=== PATIENT | female | born 1985 | race Caucasian/White ===

== ENCOUNTER 2016-08-06 21:05 | Emergency (ER) | payer SELFPAY ==
[2016-08-06] MEDS ORDERED: LORazepam 2 MG/ML INJ ONE (21:18)
[2016-08-06] MEDS ORDERED: LORazepam 2 MG/ML INJ IVP ONE (21:25)
[2016-08-06] MEDS ORDERED: NS 1,000 ML IV ONE (22:05)
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
[2016-08-06 22:22] LABS: % IMMATURE GRANULYOCYTES 0.2 % (0.0-1.1); ABSOLUTE IMMATURE GRANULOCYTES 0.02 10^3/uL (0.00-0.10); ADD DIFF? NO; ADD MORPH? NO; ADD SCAN? NO; ATYPICAL LYMPHOCYTE FLAG 10 (0-99); FRAGMENT RBC FLAG 0 (0-99); HEMOGLOBIN 13.7 g/dL (12.6-16.3); LEFT SHIFT FLG 0 (0-99); LIPEMIA HEMOLYSIS FLAG 80 (0-99); MEAN CELL HEMOGLOBIN 29.7 pg (27.9-34.1); MEAN CELL HEMOGLOBIN CONCENTR. 33.4 g/dL (32.4-36.7); MEAN CELL VOLUME 88.9 fL (81.5-99.8); MEAN PLATELET VOLUME 12.5 fL (8.7-11.7); PLATELET CLUMPS FLAG 0 (0-99); PLATELET COUNT 281 10^3/uL (150-400); RED BLOOD CELL COUNT 4.61 10^6/uL (4.18-5.33); RED CELL DISTRIBUTION WIDTH 13.3 % (11.5-15.2)
[2016-08-06 22:35] LABS: ANION GAP 14 mEq/L (8-16); CALCIUM 9.9 mg/dL (8.5-10.4); CARBON DIOXIDE 21 mEq/l (22-31); CHLORIDE 104 mEq/L (97-110); CREATININE 0.7 mg/dL (0.6-1.0); GLOMERULAR FILTRATION RATE > 60; GLUCOSE 109 mg/dL (70-100); SODIUM 139 mEq/L (134-144)
[2016-08-06 22:37] LABS: COLOR YELLOW; LEUKOCYTE ESTERASE,URINE NEGATIVE (NEGATIVE); NITRITE,URINE NEGATIVE (NEGATIVE)
[2016-08-06] MEDS ORDERED: KETOROLAC 30 MG/1 ML SDV IVP ONE (22:39)
[2016-08-06 22:46] LABS: MUCUS 1+ /lpf (NONE-1+)
[2016-08-06] MEDS ORDERED: LORAZEPAM 1 MG PREPACK#4 BTL TAKEHOME ONE (23:08)
[2016-08-06 23:20] VITALS: BP 126/84; PULSE 82; RESP 18; TEMP 97.2; O2SAT 95
== END 2016-08-06 23:20 | disposition home or self-care (01) ==
DX: F41.9 Anxiety disorder, unspecified (principal)
CPT/HCPCS: 96374; J1885; J2060

== ENCOUNTER → 2016-12-06 | Emergency (ER) | payer MEDICAID ==
[~2016-12-06] MED LIST: LIDOCAINE 2% VISCOUS 15 ML UDCUP PO ONE; OXYCODONE/APAP 5/325 TAB PO ONE; OXYCODONE/APAP 5/325MG PREPACK#4 BTL TAKEHOME ONE
[2016-12-06 20:20] VITALS: BP 145/101; PULSE 97; RESP 16; TEMP 99; O2SAT 95
--- NOTE | 2016-12-06 20:34 | EDPHY ---
HPI/HX/ROS/PE/MDM Narrative: CHIEF COMPLAINT: Toothache HPI: The patient is a 31-year-old female who underwent extraction of her right lower premolar 5 days ago secondary to a dental abscess. She was prescribed Vicodin. She has taken a total of 2 tabs of Vicodin today. She describes severe pain that has gotten gradually worse over the course of today. She called her dentist office but they were closed. She has an appointment on . She denies fever or discharge from wound. REVIEW OF SYSTEMS: Aside from elements discussed in the HPI, a comprehensive 10-point review of systems was reviewed and is negative. PMH: Includes anxiety. SOCIAL HISTORY: Denies alcohol or drug abuse. PHYSICAL EXAM: General:Patient is alert, in no acute distress. She is tearful and obviously in pain. ENT: No tongue or soft tissue swelling. Tooth extraction site of right lower premolar is present. There is no associated gingival swelling or discharge from wound. No bleeding. Neck: Normal inspection. Full range of motion. Neuro: Oriented x3. Normal motor function. Normal sensory function. ED Course: This patient presents with gum pain at the site of a recent dental procedure. I did look the patient up in the [facility] web site, and her only narcotic prescription is for the Vicodin from her dentist as she described. She is clearly and at significant amount of pain and I think she is very low risk for drug seeking behavior. Did perform an inferior alveolar nerve block. The patient will be given a prepack for Percocet and instructions to follow up with her dentist tomorrow. We discussed antibiotics, but as I see no fluctuance and the patient hopefully has access to a dentist tomorrow, we will defer this medication. Inferior alveolar nerve block. Verbal consent was obtained from the patient. Using a 27 gauge needle I performed an injection using lidocaine and bupivacaine in the usual fashion. No complications. General Time Seen by Provider: 12/06/16 20:11 Initial Vital Signs: Initial Vital Signs Temperature (C) 37.2 C 12/06/16 20:10 Heart Rate 97 12/06/16 20:10 Respiratory Rate 16 12/06/16 20:10 Blood Pressure 145/101 H 12/06/16 20:10 O2 Sat (%) 95 12/06/16 20:10 O2 Delivery Mode Room Air Allergies/Adverse Reactions: No Known Allergies Allergy (Verified 12/06/16 20:15) Home Medications: Medication Instructions Recorded Hydrocodon-Acetaminophen 5-325 12/06/16 NK [No Known Home Meds] 12/06/16 Departure - Departure Disposition: Home, Routine, Self-Care Clinical Impression: Jaw pain Condition: Good Instructions: Toothache (ED) Additional Instructions: Clear dentist tomorrow for urgent follow-up. Do not take Percocet and Vicodin at the same time. Return to the emergency department for fever, severe pain or other concerns. Referrals: NONE *PRIMARY CARE P,. [Primary Care Provider] - As per Instructions
== END | disposition home or self-care (01) ==
LOC: CED 20:04
PROC: 3E0X3BZ Introduction of Anesthetic Agent into Cranial Nerves, Percutaneous Approach (ICD-10-PCS; principal; 2016-12-06)
DX: R68.84 Jaw pain (principal)

== ENCOUNTER 2017-03-05 19:09 | Emergency (ER) | payer MEDICAID ==
[2017-03-05] MEDS ORDERED: NS 1,000 ML IV ONE ×2 (19:35→20:41)
[2017-03-05] MEDS ORDERED: ACETAMINOPHEN 160 MG/5 ML UDCUP PO ONE (19:36)
--- NOTE | 2017-03-05 19:42 | EDPHY ---
H & P Stated Complaint: Trouble breathing, fast heart rate. Took two tablets of Kratom today. Time Seen by Provider: 03/05/17 19:20 HPI/ROS: CHIEF COMPLAINT: Shortness of breath and racing heart History by patient HISTORY OF PRESENT ILLNESS: 31-year-old woman presents complaining of his like she can't breathe and her heart racing. Patient states that for the past week or so she has had some URI symptoms that started with sneezing, coughing it runny nose and sore throat which she attributed to allergies. This seemed to improve somewhat but then she had persistent coughing and this morning when she was in the shower she states she coughed up several blood clots. She has had some chills but no fever. Then tonight she was in the car and she felt like she could not get enough air that her heart was racing and that maybe she is having a panic attack. Patient has a history of panic attacks in the past but states that she has been much better recently. Patient states that she took Kratom this morning and she does not attribute her symptoms to that. Her boyfriend says that he took it too but his affects have all worn off. Patient denies any chest pain or pleuritic pain. She denies any nausea or vomiting. She has some ongoing back pain. She has a history of asthma as a child but none recently. She recently quit smoking. She also has a history of sepsis related to pyelonephritis in the past. She is not taking any hormones. There is no family history of blood clotting. REVIEW OF SYSTEMS: As in HPI, and all other systems reviewed and are negative Source: Patient - Personal History Current Tetanus/Diphtheria Vaccine: Yes Current Tetanus Diphtheria and Acellular Pertussis (TDAP): Yes Tetanus Vaccine Date: 2011 - Medical/Surgical History Hx Asthma: Yes Hx Chronic Respiratory Disease: No Hx Diabetes: No Hx Cardiac Disease: No Hx Renal Disease: No Hx Cirrhosis: No Hx Alcoholism: No Hx HIV/AIDS: No Hx Splenectomy or Spleen Trauma: No Other PMH: anxiety, panic attacks, asthma as a child, Kratom user. surg-none - Social History Smoking Status: Never smoked - Physical Exam Exam: General Appearance: Alert, anxious, tearful. Head: normocephalic, atraumatic Eyes: Pupils equal and round, reactive to light, no pallor or injection. Mouth: Mucous membranes moist. Respiratory: Slightly taking, lungs are clear to auscultation. No wheezes, rales or rhonchi. No chest wall tenderness Cardiovascular: Regular , tachycardic. S1, S2, no murmurs, gallops or rubs appreciated Gastrointestinal: Abdomen is soft and nontender, no masses, bowel sounds normal. Back: No CVA tenderness, no bony tenderness Neurological: Awake, alert and oriented x 3, no pronator drift, normal gait, no pronator drift Skin: Warm and dry, no rashes. Musculoskeletal: No deformities or tenderness. Extremities: full range of motion, no edema, no tenderness, DP2+ bilat Psychiatric: Patient has normal affect, there is no agitation. Constitutional: Initial Vital Signs Temperature (C) 37.9 C 03/05/17 19:30 Heart Rate 136 H 03/05/17 19:30 Respiratory Rate 18 03/05/17 19:30 Blood Pressure 138/91 H 03/05/17 19:30 O2 Sat (%) 94 03/05/17 19:30 O2 Delivery Mode Room Air Allergies/Adverse Reactions: No Known Allergies Allergy (Verified 03/05/17 19:14) Medical Decision Making - Diagnostics EKG Interpretation: Sinus tachycardia and rate of 125 with normal axis, normal intervals and nonspecific ST segment abnormality. No evidence of acute ischemia Imaging Results: Imaging Impressions Chest X-Ray 03/05/17 19:35 Impression: No acute findings in the chest. ED Course/Re-evaluation: 31-year-old woman presents complaining of chest pain, fever, racing heart and shortness of breath. ECG showed sinus tachycardia with nonspecific ST changes was otherwise unremarkable. There is no evidence of cardiac arrhythmia causing the patient's symptoms. Labs were notable for an elevated white blood cell count and normal hemoglobin and platelets. Electrolytes were within normal limits as was a lactate. Blood cultures x2 were obtained. A rapid strep was negative. Chest x-ray showed nothing acute. Patient was given a L of normal saline as well as Tylenol. On re-evaluation her heart rate was improved but she was complaining of pain in her back and her chest. She was given IV ketorolac the 2nd L fluids with further improvement in her heart rate. Urinalysis showed no evidence of urinary tract infection. It was not a clean catch. Flu test was negative for flu a and B. at this point I suspect the patient has a flu- like a viral infection. There is no evidence of significant systemic toxicity. Her heart rate returned to normal after 2nd L of IV fluids. On re-evaluation she was also feeling better. I discussed home measures and conservative care with the patient as well as return precautions. She was discharged home stable condition. - Data Points Laboratory Results: Laboratory Results 03/05/17 19:45 03/05/17 19:45 03/05/17 03/05/17 03/05/17 21:00 21:00 19:52 WBC RBC Hgb Hct MCV MCH MCHC RDW Plt Count MPV Neut % (Auto) Lymph % (Auto) [place] % (Auto) Eos % (Auto) Baso % (Auto) Nucleat RBC Rel Count Absolute Neuts (auto) Absolute Lymphs (auto) Absolute Monos (auto) Absolute Eos (auto) Absolute Basos (auto) Absolute Nucleated RBC Immature Gran % Immature Gran # VBG Lactic Acid Sodium Potassium Chloride Carbon Dioxide Anion Gap BUN Creatinine Estimated GFR Glucose Calcium Urine Color YELLOW Urine Appearance CLEAR Urine pH 6.0 (5.0-7.5) Ur Specific [place] 1.015 (1.002-1.030) Urine Protein NEGATIVE (NEGATIVE) Urine Ketones NEGATIVE (NEGATIVE) Urine Blood 2+ H (NEGATIVE) Urine Nitrate NEGATIVE (NEGATIVE) Urine Bilirubin NEGATIVE (NEGATIVE) Urine Urobilinogen 0.2 EU EU (0.2-1.0) Ur Leukocyte Esterase NEGATIVE (NEGATIVE) Urine RBC 1-3 /hpf /hpf (0-3) Urine WBC 1-3 /hpf /hpf (0-3) Ur Epithelial Cells 2+ /lpf H /lpf (NONE-1+) Urine Bacteria 1+ /hpf H /hpf (NONE SEEN) Hyaline Casts 0-1 /lpf /lpf (0-1) Urine Mucus 2+ /lpf H /lpf (NONE-1+) Urine Glucose NEGATIVE (NEGATIVE) Urine Test NEGATIVE Nasal Influenza A PCR NEGATIVE FOR FLU A (NEGATIVE) Nasal Influenza B PCR NEGATIVE FOR FLU B (NEGATIVE) Urine Opiates Screen NEGATIVE (NEGATIVE) Urine Barbiturates NEGATIVE (NEGATIVE) Ur Phencyclidine Scrn NEGATIVE (NEGATIVE) Ur Amphetamine Screen NEGATIVE (NEGATIVE) U Benzodiazepines Scrn NEGATIVE (NEGATIVE) Urine Cocaine Screen NEGATIVE (NEGATIVE) U Marijuana (THC) Screen NON-NEGATIVE H (NEGATIVE) 03/05/17 03/05/17 03/05/17 19:45 19:45 19:45 WBC 11.36 10^3/uL H 10^3/uL (3.80-9.50) RBC 4.13 10^6/uL L 10^6/uL (4.18-5.33) Hgb 12.8 g/dL g/dL (12.6-16.3) Hct 37.3 % L % (38.0-47.0) MCV 90.3 fL fL (81.5-99.8) MCH 31.0 pg pg (27.9-34.1) MCHC 34.3 g/dL g/dL (32.4-36.7) RDW 12.6 % % (11.5-15.2) Plt Count 217 10^3/uL 10^3/uL (150-400) MPV 11.7 fL fL (8.7-11.7) Neut % (Auto) 59.2 % % (39.3-74.2) Lymph % (Auto) 29.0 % % (15.0-45.0) [place] % (Auto) 7.3 % % (4.5-13.0) Eos % (Auto) 3.4 % % (0.6-7.6) Baso % (Auto) 0.7 % % (0.3-1.7) Nucleat RBC Rel Count 0.0 % % (0.0-0.2) Absolute Neuts (auto) 6.72 10^3/uL H 10^3/uL (1.70-6.50) Absolute Lymphs (auto) 3.29 10^3/uL H 10^3/uL (1.00-3.00) Absolute Monos (auto) 0.83 10^3/uL H 10^3/uL (0.30-0.80) Absolute Eos (auto) 0.39 10^3/uL 10^3/uL (0.03-0.40) Absolute Basos (auto) 0.08 10^3/uL 10^3/uL (0.02-0.10) Absolute Nucleated RBC 0.00 10^3/uL 10^3/uL (0-0.01) Immature Gran % 0.4 % % (0.0-1.1) Immature Gran # 0.05 10^3/uL 10^3/uL (0.00-0.10) VBG Lactic Acid 1.1 mmol/L mmol/L (0.7-2.1) Sodium 137 mEq/L mEq/L (134-144) Potassium 3.5 mEq/L mEq/L (3.5-5.2) Chloride 102 mEq/L mEq/L (97-110) Carbon Dioxide 24 mEq/l mEq/l (22-31) Anion Gap 11 mEq/L mEq/L (8-16) BUN 7 mg/dL mg/dL (7-23) Creatinine 0.7 mg/dL mg/dL (0.6-1.0) Estimated GFR > 60 Glucose 186 mg/dL H mg/dL (70-100) Calcium 8.8 mg/dL mg/dL (8.5-10.4) Urine Color Urine Appearance Urine pH Ur Specific [place] Urine Protein Urine Ketones Urine Blood Urine Nitrate Urine Bilirubin Urine Urobilinogen Ur Leukocyte Esterase Urine RBC Urine WBC Ur Epithelial Cells Urine Bacteria Hyaline Casts Urine Mucus Urine Glucose Urine Test Nasal Influenza A PCR Nasal Influenza B PCR Urine Opiates Screen Urine Barbiturates Ur Phencyclidine Scrn Ur Amphetamine Screen U Benzodiazepines Scrn Urine Cocaine Screen U Marijuana (THC) Screen Medications Given: Discontinued Medications Acetaminophen (Tylenol 160mg/5ml Oral Liquid) 1,000 mg PO EDNOW ONE Stop: 03/05/17 19:37 Last Admin: 03/05/17 19:45 Dose: 1,000 mg Sodium Chloride (Ns) 1,000 mls @ 0 mls/hr IV ONCE ONE; Wide Open PRN Reason: Protocol Stop: 03/05/17 19:36 Last Admin: 03/05/17 19:43 Dose: 1,000 mls Sodium Chloride (Ns) 1,000 mls @ 0 mls/hr IV EDNOW ONE; Wide Open PRN Reason: Protocol Stop: 03/05/17 20:42 Last Admin: 03/05/17 20:45 Dose: 1,000 mls Ketorolac Tromethamine (Toradol) 15 mg IVP EDNOW ONE Stop: 03/05/17 20:42 Last Admin: 03/05/17 20:44 Dose: 15 mg Departure - Departure Disposition: Home, Routine, Self-Care Clinical Impression: Palpitations Fever Qualifiers: Fever type: unspecified Qualified Code(s): R50.9 - Fever, unspecified Condition: Good Instructions: Fever in Adults (ED) Additional Instructions: You were seen by Dr. Silvia Chávez today. Make sure you drink plenty of fluids. Rest. Take ibuprofen and Tylenol as needed for fever and pain. Return for any worsening or new concerns.
[2017-03-05 19:51] LABS: PLATELET COUNT 217 10^3/uL (150-400)
[2017-03-05] MEDS ORDERED: KETOROLAC 15 MG/1 ML SDV IVP ONE (20:41)
[2017-03-05 22:51] VITALS: BP 136/71; PULSE 96; RESP 16; TEMP 98.1; O2SAT 94
--- NOTE | 2017-03-14 12:42 | CPEKG ---
Heart Rate: 125 RR Interval: 480 P-R Interval: 148 QRSD Interval: 86 QT Interval: 320 QTC Interval: 462 P [place]: 42 QRS [place]: 78 T Wave [place]: -1 EKG Severity - OTHERWISE NORMAL ECG - EKG Impression: SINUS TACHYCARDIA EKG Impression: MINIMAL ST DEPRESSION, INFERIOR LEADS Preliminary Awaiting MD Review
== END 2017-03-05 23:00 | disposition home or self-care (01) ==
LOC: CED 19:09
DX: R50.9 Fever, unspecified (principal); R00.2 Palpitations; J45.909 Unspecified asthma, uncomplicated; E86.9 Volume depletion, unspecified
CPT/HCPCS: 71020-PO; 80048-PO; 80307-PO; 81003-PO; 81015-PO; 81025-PO; 83605-PO; 85025-PO; 96374; J1885

== ENCOUNTER 2017-09-13 13:18 | Emergency (ER) | payer MEDICAID, OTHER ==
--- NOTE | 2017-09-13 13:42 | EDPHY ---
H & P Stated Complaint: Panic Attack - Personal History LMP (Females 10-55): Now Tetanus Vaccine Date: 2011 - Medical/Surgical History Hx Asthma: Yes Hx Chronic Respiratory Disease: No Hx Diabetes: No Hx Cardiac Disease: No Hx Renal Disease: No Hx Cirrhosis: No Hx Alcoholism: No Hx HIV/AIDS: No Hx Splenectomy or Spleen Trauma: No Other PMH: anxiety, panic attacks, asthma as a child, Kratom user. 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 This is the 2nd panic attack this week the patient has had. She notes numerous personal stressors in her life which has become progressively worse. No medication changes. PRIMARY CARE PROVIDER: REVIEW OF SYSTEMS: A ten point review of systems was performed and is negative with the exception of the items mentioned in the HPI PAST MEDICAL & SURGICAL HISTORY: Anxiety. Depression. SOCIAL HISTORY: works as a mental health pole truck driver PHYSICAL EXAM (Prior to examination, patient consented to physical exam, hands were washed and my usual and customary physical exam procedures followed) 1) GENERAL: Well-developed, well-nourished, alert and oriented. Hyperventilating, crying 2) HEAD: Normocephalic, atraumatic 3) HEENT: Pupils equal, round, reactive to light bilaterally. Sclera anicteric. 4) NECK: Full range of motion, no meningeal signs. 5) LUNGS: Clear auscultation bilaterally, no wheezes, no rhonchi, no retractions. 6) HEART: Regular rate and rhythm, no murmur, no heave, no gallop. 7) ABDOMEN: No guarding, no rebound, no focal tenderness, 8) MUSCULOSKELETAL: No peripheral edema or discoloration. 9) BACK: No obvious trauma, no visual or palpable abnormality. 10) SKIN: No rash, no petechiae. 11) Psychiatric: Patient is oriented X 3, there is no agitation. DIFFERENTIAL DIAGNOSIS: In no particular include but limited to acute anxiety attack, depression, suicidal ideation (Bethany Monroe Desi) Constitutional: Initial Vital Signs Temperature (C) 36.8 C 09/13/17 13:33 Heart Rate 96 09/13/17 13:33 Respiratory Rate 16 09/13/17 13:33 Blood Pressure 151/86 H 09/13/17 13:33 O2 Sat (%) 92 09/13/17 13:33 O2 Delivery Mode Room Air Allergies/Adverse Reactions: No Known Allergies Allergy (Verified 03/05/17 19:14) Home Medications: Medication Instructions Recorded Escitalopram Oxalate 20 mg PO DAILY 09/13/17 Terbinafine 250 mg PO DAILY 09/13/17 Medical Decision Making ED Course/Re-evaluation: 1:50 p.m.: At this time the patient is tearful and anxious and does endorse suicidal ideation without plan. Plan will be placement of patient on M1 hold with mental health evaluation. Will administer benzodiazepine given her current anxious state. Case discussed with secondary supervising physician Dr. Trip Rodney in the ER. 5:00 p.m.: Care turned over to Dr. Trip Rodney at this time. (Bethany Monroe Desi) Other Provider: PHYSICIAN DOCUMENTATION: The patient was evaluated and managed by the Physician Deli Worker and myself. I have reviewed the chart and agree with the findings and plan of care as documented. In addition, I examined the patient myself at 1515. History confirmed as endorses suicidal ideation in the context of depression and anxiety. Physical findings as follows: Alert, depressed, anxious, denies suicidal plan. Patient placed on a mental health hold by myself in conjunction with Don QUINN. Per mental health pole truck driver plan is for [facility]SU placement. 2000: Accepted Dr. Amaya at [facility]. Reason for transfer is inpatient psychiatric hospital but not available at [facility], stable for transfer. I am the secondary supervising physician. (Trip Rodney) I assumed care of the patient at 8pm - she was accepted at [facility]. EMTALA has been completed by Dr. oRdney. (Wali Genao) - Data Points Laboratory Results: Laboratory Results 09/13/17 13:40 09/13/17 13:40 09/13/17 09/13/17 09/13/17 13:45 13:40 13:40 WBC 5.46 10^3/uL 10^3/uL (3.80-9.50) RBC 4.45 10^6/uL 10^6/uL (4.18-5.33) Hgb 13.7 g/dL g/dL (12.6-16.3) Hct 40.8 % % (38.0-47.0) MCV 91.7 fL fL (81.5-99.8) MCH 30.8 pg pg (27.9-34.1) MCHC 33.6 g/dL g/dL (32.4-36.7) RDW 13.0 % % (11.5-15.2) Plt Count 205 10^3/uL 10^3/uL (150-400) MPV 12.5 fL H fL (8.7-11.7) Neut % (Auto) 52.2 % % (39.3-74.2) Lymph % (Auto) 32.2 % % (15.0-45.0) Hancock % (Auto) 9.7 % % (4.5-13.0) Eos % (Auto) 4.4 % % (0.6-7.6) Baso % (Auto) 1.3 % % (0.3-1.7) Nucleat RBC Rel Count 0.0 % % (0.0-0.2) Absolute Neuts (auto) 2.85 10^3/uL 10^3/uL (1.70-6.50) Absolute Lymphs (auto) 1.76 10^3/uL 10^3/uL (1.00-3.00) Absolute Monos (auto) 0.53 10^3/uL 10^3/uL (0.30-0.80) Absolute Eos (auto) 0.24 10^3/uL 10^3/uL (0.03-0.40) Absolute Basos (auto) 0.07 10^3/uL 10^3/uL (0.02-0.10) Absolute Nucleated RBC 0.00 10^3/uL 10^3/uL (0-0.01) Immature Gran % 0.2 % % (0.0-1.1) Immature Gran # 0.01 10^3/uL 10^3/uL (0.00-0.10) Sodium 142 mEq/L mEq/L (135-145) Potassium 4.3 mEq/L mEq/L (3.3-5.0) Chloride 106 mEq/L mEq/L (97-110) Carbon Dioxide 25 mEq/l mEq/l (22-31) Anion Gap 11 mEq/L mEq/L (8-16) BUN 11 mg/dL mg/dL (7-23) Creatinine 0.6 mg/dL mg/dL (0.6-1.0) Estimated GFR > 60 Glucose 83 mg/dL mg/dL (70-100) Calcium 9.0 mg/dL mg/dL (8.5-10.4) Urine Color YELLOW Urine Appearance HAZY Urine pH 6.0 (5.0-7.5) Ur Specific [place] 1.014 (1.002-1.030) Urine Protein NEGATIVE (NEGATIVE) Urine Ketones NEGATIVE (NEGATIVE) Urine Blood NEGATIVE (NEGATIVE) Urine Nitrate NEGATIVE (NEGATIVE) Urine Bilirubin NEGATIVE (NEGATIVE) Urine Urobilinogen NEGATIVE EU EU (0.2-1.0) Ur Leukocyte Esterase NEGATIVE (NEGATIVE) Urine RBC 1-3 /hpf /hpf (0-3) Urine WBC NONE SEEN /hpf /hpf (0-3) Ur Epithelial Cells TRACE /lpf /lpf (NONE-1+) Urine Mucus 4+ /lpf H /lpf (NONE-1+) Urine Glucose NEGATIVE (NEGATIVE) Urine Opiates Screen NEGATIVE (NEGATIVE) Urine Barbiturates NEGATIVE (NEGATIVE) Ur Phencyclidine Scrn NEGATIVE (NEGATIVE) Ur Amphetamine Screen NEGATIVE (NEGATIVE) U Benzodiazepines Scrn NEGATIVE (NEGATIVE) Urine Cocaine Screen NEGATIVE (NEGATIVE) U Marijuana (THC) Screen NON-NEGATIVE H (NEGATIVE) Ethyl Alcohol < 10 mg/dL mg/dL (0-10) Medications Given: Discontinued Medications Lorazepam (Ativan Injection) 1 mg IVP EDNOW ONE Stop: 09/13/17 13:44 Last Admin: 09/13/17 13:50 Dose: 1 mg Lorazepam (Ativan) 1 mg PO EDNOW ONE Stop: 09/13/17 16:41 Last Admin: 09/13/17 16:47 Dose: 1 mg Departure - Departure Disposition: Other Psych, Not Christo Clinical Impression: Anxiety, Severe major depression Condition: Good Referrals: Patient,NotPresent [Unknown] - As per Instructions
[2017-09-13] MEDS ORDERED: LORazepam 2 MG/ML INJ IVP ONE (13:43)
[2017-09-13 14:00] LABS: PLATELET COUNT 205 10^3/uL (150-400)
[2017-09-13] MEDS ORDERED: LORazepam 1 MG TAB PO ONE ×2 (16:40→22:40)
[2017-09-13 20:22] VITALS: BP 132/78
[2017-09-13] MEDS ORDERED: LORazepam 1 MG TAB ONE (22:40)
== END 2017-09-13 22:55 ==
LOC: EDUNIT#
DX: F41.9 Anxiety disorder, unspecified (principal); F33.2 Major depressive disorder, recurrent severe without psychotic features; J45.909 Unspecified asthma, uncomplicated
CPT/HCPCS: 80305; 96374; G0480; J2060